=== PATIENT | male | born 1995 | race Caucasian/White ===

== ENCOUNTER 2017-05-08 12:38 | Emergency (ER) | payer BC ==
--- NOTE | 2017-05-08 13:14 | EDM.PDOC ---
ED HPI GENERAL MEDICAL PROBLEM - General Chief Complaint: General Stated Complaint: MALE PROBLEMS Time Seen by Provider: 05/08/17 13:00 Source of Information: Reports: Patient History Limitations: Reports: No Limitations - History of Present Illness INITIAL COMMENTS - FREE TEXT/NARRATIVE: History of present illness: [21-year-old male presenting with complaints of hemorrhoids that are painful and engorged internal in the colon. He indicates that the medication that he puts externally helps but that after he is on his feet into the third and fourth of the day being gorge and become so painful that he cannot tolerate it.] Review of systems: As per history of present illness and below otherwise all systems reviewed and negative. Past medical history: As per history of present illness and as reviewed below otherwise noncontributory. Surgical history: As per history of present illness and as reviewed below otherwise noncontributory. Social history: No reported history of drug or alcohol abuse. Family history: As per history of present illness and as reviewed below otherwise noncontributory. Physical exam: HEENT: Atraumatic, normocephalic, pupils reactive, negative for conjunctival pallor or scleral icterus, mucous membranes moist, throat clear, neck supple, nontender, trachea midline. Lungs: Clear to auscultation, breath sounds equal bilaterally, chest nontender. Heart: S1S2, regular, negative for clicks, rubs, or JVD. Abdomen: Soft, nondistended, nontender. Negative for masses or hepatosplenomegaly. Negative for costovertebral tenderness. Pelvis: Stable nontender. Genitourinary: Deferred. Rectal: Deferred. Extremities: Atraumatic, negative for cords or calf pain. Neurovascular unremarkable. Neuro: Awake, alert, oriented. Cranial nerves II through XII unremarkable. Cerebellum unremarkable. Motor and sensory unremarkable throughout. Exam nonfocal. Patient discussed his hemorrhoidal issues and the fact that the topical hemorrhoid cream was only minimally impacting it and making it better. Discussed with patient's different options and considerations the need for primary care follow-up. We'll prescribe Natalio wilder from the local compounding pharmacy Diagnostics: [] Therapeutics: [] Impression: [Hemorrhoids] Plan: [Few days off of work with legs elevated present] Definitive disposition and diagnosis as appropriate pending reevaluation and review of above. hemorrhoids Pain Score (Numeric/FACES): 7 - Related Data Allergies Allergy/AdvReac Type Severity Reaction Status Date / Time No Known Allergies Allergy Verified 05/08/17 12:53 Home Meds: Home Meds . [No Known Home Meds] 05/08/17 [History] Past Medical History Gastrointestinal History: Reports: Hemorrhoids Musculoskeletal History: Reports: Back Pain, Chronic Social & Family History - Family History Family Medical History: Noncontributory - Tobacco Use Smoking Status *Q: Current Every Day Smoker Years of Tobacco use: 3 Packs/Tins Daily: 1 - Alcohol Use Days Per Week of Alcohol Use: 1 Number of Drinks Per Day: 2 Total Drinks Per Week: 2 - Recreational Drug Use Recreational Drug Use: No ED ROS GENERAL - Review of Systems Review Of Systems: See Below (History of present illness) ED EXAM, GENERAL - Physical Exam Exam: See Below (History of present illness) Course - Vital Signs Last Recorded V/S: Last Vital Signs Temp 36.8 C 05/08/17 12:54 Pulse 68 05/08/17 12:54 Resp 18 05/08/17 12:54 BP 102/65 05/08/17 12:54 Pulse Ox 98 05/08/17 12:54 Departure - Departure Time of Disposition: 13:18 Disposition: Home, Self-Care 01 Condition: Good Clinical Impression: Hemorrhoids - Discharge Information Additional Instructions: The following information is given to patients seen in the emergency department who are being discharged to home. This information is to outline your options for follow-up care. We provide all patients seen in our emergency department with a follow-up referral. The need for follow-up, as well as the timing and circumstances, are variable depending upon the specifics of your emergency department visit. If you don't have a primary care physician on staff, we will provide you with a referral. We always advise you to contact your personal physician following an emergency department visit to inform them of the circumstance of the visit and for follow-up with them and/or the need for any referrals to a consulting specialist. The emergency department will also refer you to a specialist when appropriate. This referral assures that you have the opportunity for follow-up care with a specialist. All of these measure are taken in an effort to provide you with optimal care, which includes your follow-up. Under all circumstances we always encourage you to contact your private physician who remains a resource for coordinating your care. When calling for follow-up care, please make the office aware that this follow-up is from your recent emergency room visit. If for any reason you are refused follow-up, please contact the [facility] Emergency Department at and asked to speak to the emergency department charge nurse. Follow-up with primary care as discussed also given a surgical referral as needed [facility] [address] [place] [id number] [facility] Specialty Care - General Surgery Professional Building [address] [place] [address], [address] [place] [address]
== END 2017-05-08 13:34 | disposition home or self-care (01) ==
LOC: MW.ED 12:38
CPT/HCPCS: 99282

== ENCOUNTER 2017-05-22 17:53 | Emergency (ER) | payer BC ==
--- NOTE | 2017-05-22 18:06 | EDM.PDOC ---
ED HPI GENERAL MEDICAL PROBLEM - General Chief Complaint: Upper Extremity Injury/Pain Stated Complaint: PAIN RT HAND KNUCKLES Time Seen by Provider: 05/22/17 18:05 Source of Information: Reports: Patient - History of Present Illness INITIAL COMMENTS - FREE TEXT/NARRATIVE: HISTORY AND PHYSICAL: History of present illness: Just prior to arrival patient punched a wall complains of 5 out of 10 pain over third metacarpal No fever nausea vomiting chills sweats denies other injury Review of systems: As per history of present illness and below otherwise all systems reviewed and negative. Past medical history: As per history of present illness and as reviewed below otherwise noncontributory. Surgical history: As per history of present illness and as reviewed below otherwise noncontributory. Social history: No reported history of drug or alcohol abuse. Family history: As per history of present illness and as reviewed below otherwise noncontributory. Physical exam: HEENT: Atraumatic, normocephalic, pupils reactive, negative for conjunctival pallor or scleral icterus, mucous membranes moist, throat clear, neck supple, nontender, trachea midline. Lungs: Clear to auscultation, breath sounds equal bilaterally, chest nontender. Heart: S1S2, regular, negative for clicks, rubs, or JVD. Abdomen: Soft, nondistended, nontender. Negative for masses or hepatosplenomegaly. Negative for costovertebral tenderness. Pelvis: Stable nontender. Genitourinary: Deferred. Rectal: Deferred. Extremities: Atraumatic, negative for cords or calf pain. Neurovascular unremarkable. Neuro: Awake, alert, oriented. Cranial nerves II through XII unremarkable. Cerebellum unremarkable. Motor and sensory unremarkable throughout. Exam nonfocal. Right hand unaffected above the wrist nontender at the level of the wrist entirely was neurovascularly intact no redness warmth or exudate no open lesion there is swelling about the second and third metacarpal Diagnostics: []Right hand 3 views Therapeutics: []Rest ice ibuprofen Splint Impression: []Right hand pain Distal Third metacarpal fracture Definitive disposition and diagnosis as appropriate pending reevaluation and review of above. - Related Data Allergies Allergy/AdvReac Type Severity Reaction Status Date / Time No Known Allergies Allergy Verified 05/08/17 12:53 Home Meds: Home Meds . [No Known Home Meds] 05/08/17 [History] Past Medical History Gastrointestinal History: Reports: Hemorrhoids Musculoskeletal History: Reports: Back Pain, Chronic Social & Family History - Family History Family Medical History: Noncontributory - Tobacco Use Smoking Status *Q: Current Every Day Smoker Years of Tobacco use: 3 Packs/Tins Daily: 1 - Alcohol Use Days Per Week of Alcohol Use: 1 Number of Drinks Per Day: 2 Total Drinks Per Week: 2 - Recreational Drug Use Recreational Drug Use: No Review of Systems - Review of Systems Review Of Systems: ROS reveals no pertinent complaints other than HPI. ED EXAM, GENERAL - Physical Exam Exam: See Below Course - Vital Signs Last Recorded V/S: Last Vital Signs Temp 36.2 C 05/22/17 18:01 Pulse 76 05/22/17 18:01 Resp 16 05/22/17 18:01 BP 134/72 05/22/17 18:01 Pulse Ox 97 05/22/17 18:01 - Orders/Labs/Meds Orders: Active Orders 24 hr Category Date Time Status Hand Comp Min 3V Rt [CR] Stat Exams 05/22/17 18:05 Taken Departure - Departure Time of Disposition: 18:36 Disposition: Home, Self-Care 01 Condition: Good Clinical Impression: Fracture of metacarpal bone - Discharge Information Forms: ED Department Discharge Additional Instructions: Splint Rest Ice 20 minute intervals 3 times daily 7-10 days Ibuprofen 400-800 mg by mouth 3 times a day when necessary 7-10 days Follow-up with orthopedist, call number below to schedule appropriate follow-up [facility] - [facility]opedic Clinic [address], [address] [place] [address] my orthopedic The following information is given to patients seen in the emergency department who are being discharged to home. This information is to outline your options for follow-up care. We provide all patients seen in our emergency department with a follow-up referral. The need for follow-up, as well as the timing and circumstances, are variable depending upon the specifics of your emergency department visit. If you don't have a primary care physician on staff, we will provide you with a referral. We always advise you to contact your personal physician following an emergency department visit to inform them of the circumstance of the visit and for follow-up with them and/or the need for any referrals to a consulting specialist. The emergency department will also refer you to a specialist when appropriate. This referral assures that you have the opportunity for follow-up care with a specialist. All of these measure are taken in an effort to provide you with optimal care, which includes your follow-up. Under all circumstances we always encourage you to contact your private physician who remains a resource for coordinating your care. When calling for follow-up care, please make the office aware that this follow-up is from your recent emergency room visit. If for any reason you are refused follow-up, please contact the [facility] emergency department at and asked to speak to the emergency department charge nurse. - My Orders Last 24 Hours: My Active Orders 05/22/17 18:05 Hand Comp Min 3V Rt [CR] Stat - Assessment/Plan Last 24 Hours: My Active Orders 05/22/17 18:05 Hand Comp Min 3V Rt [CR] Stat
[2017-05-22 19:10] VITALS: BP 112/55
--- NOTE | 2017-05-23 17:58 | CR ---
EXAM DATE: 05/22/17 PATIENT'S AGE: 21 Patient: LAMONT SPARKS Facility: [place], [place] Site . Site : 1995 Study: XRay Extremity hand [id number]/27/2017 6:24:04 PM Ordering Physician: Pedro Pringle Final Report: Indication: Punching injury Technique: Three views right hand Comparison: None Findings: Bones: There is a minimally displaced fracture at the junction of the 3rd metacarpal head and shaft. Mild associated soft tissue swelling of the dorsum of the hand. Joint spaces: Unremarkable. Soft tissues: Unremarkable. Impression: Minimally displaced fracture at the junction of the 3rd metacarpal head and shaft. Dictated by Eva Saldivar MD @ May 22 2017 6:52PM (Electronic Signature) Report Signed by Proxy. SOHAIL
== END 2017-05-22 18:53 | disposition home or self-care (01) ==
LOC: MW.ED 17:53
DX: S62.322A Displaced fracture of shaft of third metacarpal bone, right hand, initial encounter for closed fracture (principal); F17.210 Nicotine dependence, cigarettes, uncomplicated; W22.8XXA Striking against or struck by other objects, initial encounter
CPT/HCPCS: 73130-26-RT; 73130-RT; 99283

== ENCOUNTER 2017-05-27 21:21 | Emergency (ER) | payer BC ==
--- NOTE | 2017-05-27 21:40 | EDM.PDOC ---
ED HPI GENERAL MEDICAL PROBLEM - General Chief Complaint: Upper Extremity Injury/Pain Stated Complaint: PAIN RT HAND/WRIST Time Seen by Provider: 05/27/17 21:28 - History of Present Illness INITIAL COMMENTS - FREE TEXT/NARRATIVE: HISTORY AND PHYSICAL: History of present illness: The patient is a 21-year-old male who [facility] at his right hand as there is a fracture in the hand that was diagnosed here on May 22. The patient on that ER visit had an x-ray which I reviewed and revealed a minimally displaced fracture of the third metacarpal between the shaft and head. The patient was given a Velcro splint and has not called for referral appointment. He has been icing it and elevating it but is only been taking Motrin for pain and says that the pain is persistent and he cannot sleep. He has no other new injuries and no other systemic complaints area ; he says he is only here to get better pain management. The patient is also concerned because he is unable to fully extend his third finger. He is able to flex completely. The patient is right-hand dominant Review of systems: As per history of present illness and below otherwise all systems reviewed and negative. Past medical history: As per history of present illness and as reviewed below otherwise noncontributory. Surgical history: As per history of present illness and as reviewed below otherwise noncontributory. Social history: No reported history of drug or alcohol abuse. Family history: As per history of present illness and as reviewed below otherwise noncontributory. Physical exam: Gen.: Well-developed well-nourished male who is nontoxic and vital signs have been reviewed by me HEENT: Atraumatic, normocephalic, negative for conjunctival pallor or scleral icterus, mucous membranes moist, throat clear, neck supple, nontender, trachea midline. Lungs: Clear to auscultation, breath sounds equal bilaterally, chest nontender. Heart: S1S2, regular rate and rhythm no overt murmurs Abdomen: Soft, nondistended, nontender. NABS Pelvis: Deferred Genitourinary: Deferred. Rectal: Deferred. Extremities: Atraumatic with the exception of the dorsal aspect of the right hand where there is soft tissue swelling along the third metacarpal but there is no ecchymosis or erythema and there is tenderness. The patient is not able to fully extend his third digit but there is good cap refill and the remainder of the hand and digits are nontender without defects. There is no proximal wrist forearm elbow or humerus tenderness, all other extremities have full range of motion without defects or deficits and the legs are negative for cords or calf pain. Neurovascular unremarkable. Neuro: Awake, alert, oriented. Cranial nerves II through XII unremarkable. Cerebellum unremarkable. Motor and sensory unremarkable throughout. Exam nonfocal. Diagnostics: The patient's hand x-ray from May 22 was reviewed by me Therapeutics: Generous ulnar gutter splint will be placed along with sling I will give [place] for home for pain management and have advised the patient to use only when at home and continue Motrin or plain Tylenol when at work. I will also give him referral for hand specialist Impression: Persistent pain of right hand status post fracture of third metacarpal Definitive disposition and diagnosis as appropriate pending reevaluation and review of above. right wrist Pain Score (Numeric/FACES): 6 - Related Data Allergies Allergy/AdvReac Type Severity Reaction Status Date / Time No Known Allergies Allergy Verified 05/27/17 21:28 Home Meds: Home Meds . [No Known Home Meds] 05/08/17 [History] Past Medical History - Past Health History Medical/Surgical History: Denies Medical/Surgical History HEENT History: Reports: None Cardiovascular History: Reports: None Respiratory History: Reports: None Gastrointestinal History: Reports: Hemorrhoids Genitourinary History: Reports: None Musculoskeletal History: Reports: Back Pain, Chronic Neurological History: Reports: None Psychiatric History: Reports: None Endocrine/Metabolic History: Reports: None Hematologic History: Reports: None - Infectious Disease History Infectious Disease History: Reports: None Social & Family History - Family History Family Medical History: Noncontributory - Tobacco Use Smoking Status *Q: Current Every Day Smoker Years of Tobacco use: 2 Packs/Tins Daily: 1 Second Hand Smoke Exposure: Yes - Caffeine Use Caffeine Use: Reports: Coffee, Energy Drinks, Soda - Alcohol Use Days Per Week of Alcohol Use: 1 Number of Drinks Per Day: 2 Total Drinks Per Week: 2 - Recreational Drug Use Recreational Drug Use: No Review of Systems - Review of Systems Review Of Systems: ROS reveals no pertinent complaints other than HPI. ED EXAM, GENERAL - Physical Exam Exam: See Below (See dictation) Course - Vital Signs Last Recorded V/S: Last Vital Signs Temp 36.7 C 05/27/17 21:29 Pulse 86 05/27/17 21:29 Resp 14 05/27/17 21:29 BP 124/93 H 05/27/17 21:29 Pulse Ox 99 05/27/17 21:29 - Orders/Labs/Meds Orders: Active Orders 24 hr Category Date Time Status DME for Discharge [COMM] Stat Oth 05/27/17 21:35 Ordered Departure - Departure Time of Disposition: 21:38 Disposition: Home, Self-Care 01 Condition: Good Clinical Impression: Hand pain, right - Discharge Information Forms: ED Department Discharge Additional Instructions: The following information is given to patients seen in the emergency department who are being discharged to home. This information is to outline your options for follow-up care. We provide all patients seen in our emergency department with a follow-up referral. The need for follow-up, as well as the timing and circumstances, are variable depending upon the specifics of your emergency department visit. If you don't have a primary care physician on staff, we will provide you with a referral. We always advise you to contact your personal physician following an emergency department visit to inform them of the circumstance of the visit and for follow-up with them and/or the need for any referrals to a consulting specialist. The emergency department will also refer you to a specialist when appropriate. This referral assures that you have the opportunity for followup care with a specialist. All of these measure are taken in an effort to provide you with optimal care, which includes your followup. Under all circumstances we always encourage you to contact your private physician who remains a resource for coordinating your care. When calling for followup care, please make the office aware that this follow-up is from your recent emergency room visit. If for any reason you are refused follow-up, please contact the [facility] emergency department at and ask to speak to the emergency department charge nurse. [facility] Specialty clinic-Plastic Surgery and Hand Surgery Professional Building [address] [place] [phone] Please call and be seen by our hand surgeon, Dr. Molina, for definitive care and treatment. Please do not get the splint that was placed this evening wet and keep the arm elevated and use ice. Continue to use Tylenol and ibuprofen during the day and take the stronger pain medications when you're at home. Please return to ER as needed and as discussed. Do not remove the splint until you're seen by the hand specialist - My Orders Last 24 Hours: My Active Orders 05/27/17 21:35 DME for Discharge [COMM] Stat - Assessment/Plan Last 24 Hours: My Active Orders 05/27/17 21:35 DME for Discharge [COMM] Stat
[2017-05-27 22:15] VITALS: BP 120/58
== END 2017-05-27 22:15 | disposition home or self-care (01) ==
LOC: MW.ED 21:21
DX: M79.641 Pain in right hand (principal); S62.302D Unspecified fracture of third metacarpal bone, right hand, subsequent encounter for fracture with routine healing; F17.210 Nicotine dependence, cigarettes, uncomplicated; X58.XXXD Exposure to other specified factors, subsequent encounter
CPT/HCPCS: 99283